=== PATIENT | male | born 2000 | race Caucasian/White ===

== ENCOUNTER 2022-09-08 23:12 | Emergency (ER) | payer BC ==
[~2022-09-08] VITALS: Ht 185.4 cm; Wt 79.5 kg
[2022-09-09 00:19] LABS: BASO # 0.1 K/mm3 (0.0-0.2); BASO % 0.5 % (0.0-2.0); EOS % 0.3 % (0.0-4.0); GRAN # 7.4 K/mm3 (1.4-6.5); GRAN % 63.7 % (42.2-75.2); HEMATOCRIT 46.2 % (42.0-52.0); HEMOGLOBIN 16.2 g/dl (13.5-18.0); MEAN CELL VOLUME 86 fl (80.0-100.0); MEAN CORPUSCULAR HEMOGLOBIN 30 pg (27-31); MEAN CORPUSCULAR HGB CONC 35 g/dl (33.0-37.0); MEAN PLATELET VOLUME 9.5 fl (7.4-10.4); MONO # 1.1 K/mm3 (0.1-0.6); MONO % 9.2 % (1.7-9.3); PLATELET COUNT 393 K/mm3 (130-400); RED BLOOD COUNT 5.37 M/mm3 (4.20-5.60); REDCELL DISTRIBUTION WIDTH-CV 12.3 % (11.5-14.5)
[2022-09-09 00:41] LABS: ACETAMINOPHEN < 1.0 ug/mL (10-30); ALANINE AMINOTRANSFERASE 21 U/L (0-55); ALBUMIN 4.7 gm/dL (3.5-5.0); ALCOHOL(ethanol),MEDICAL < 10 mg/dL (0-10); ALKALINE PHOSPHATASE 85 U/L (40-150); ANION GAP 14 mmol/L (7-16); AST,SGOT 18 U/L (5-34); BILIRUBIN,TOTAL 1.3 mg/dL (0.2-1.2); BLOOD UREA NITROGEN 10 mg/dL (9-21); CARBON DIOXIDE 23 mmol/L (22-29); CHLORIDE 106 mmol/L (98-107); CREATININE, serum 0.98 mg/dL (0.72-1.25); GLUCOSE 115 mg/dL (70-99); POTASSIUM 4.1 mmol/L (3.5-4.5); SALICYLATE < 5.0 mg/dL (15.0-30.0); SODIUM 143 mmol/L (136-145); TOTAL PROTEIN 8.1 gm/dL (6.2-8.1)
[2022-09-09 08:33] LABS: COLLECTION METHOD CLEAN CATCH
[2022-09-09 08:44] LABS: MUCOUS Present (NOT PRESENT); SQUAMOUS EPITHELIAL None Seen /hpf (0-10); URINE BACTERIA Rare /hpf (NONE SEEN); URINE COLOR Amber (YELLOW); URINE RBC 0-2 /hpf (0-2)
[2022-09-09 08:45] LABS: PH 6.5 (5.0-8.5); URINE APPEARANCE Clear (CLEAR/HAZY); URINE BLOOD Negative (NEGATIVE); URINE GLUCOSE Negative (NEGATIVE); URINE KETONE TRACE (NEGATIVE); URINE NITRATE Negative (NEGATIVE); URINE PROTEIN(semi-quant) 2+ (NEGATIVE)
[2022-09-09 08:54] LABS: TRICYCLIC ANTIDEPRESS URINE NEGATIVE
[2022-09-09] MEDS ORDERED: ZYPREXA10 MG PO (13:17)
[2022-09-09 13:28] VITALS: BP 140/71; PULSE 100; TEMP 98.4
== END 2022-09-09 13:40 ==
LOC: COL.ER 23:12
PROVIDERS: Emergency Medicine
DX: R44.0 Auditory hallucinations (principal); R46.1 Bizarre personal appearance; Z86.59 Personal history of other mental and behavioral disorders; Z20.822 Contact with and (suspected) exposure to COVID-19
CPT/HCPCS: J3486

== ENCOUNTER 2024-01-14 13:24 | Emergency (ER) | payer BC ==
[~2024-01-14] VITALS: Ht 198.1 cm; Wt 150.0 kg
[~2024-01-14 13:24] MED LIST: ZYPREXA10 MG PO
[2024-01-14 13:31] VITALS: TEMP 98.5
[2024-01-14 13:48] LABS: COLLECTION METHOD CLEAN CATCH
[2024-01-14 13:58] LABS: PH 5.5 (5.0-8.5); URINE APPEARANCE CLEAR (CLEAR/HAZY); URINE BLOOD NEGATIVE (NEGATIVE); URINE COLOR YELLOW (YELLOW); URINE GLUCOSE NEGATIVE (NEGATIVE); URINE KETONE NEGATIVE (NEGATIVE); URINE NITRATE NEGATIVE (NEGATIVE); URINE PROTEIN(semi-quant) 2+ (NEGATIVE); URINE UROBILINOGEN 0.2 E.U/dL (0.2-1.0)
[2024-01-14] MEDS ORDERED: OLANZapine 5 MG TAB PO ONE (14:00)
[2024-01-14] MEDS ORDERED: LR 1,000 ML IV ONE ×2 (14:00→16:00)
[2024-01-14 14:05] LABS: TRICYCLIC ANTIDEPRESS URINE NEGATIVE (NEGATIVE)
[2024-01-14 14:12] LABS: HEMATOCRIT 44.5 % (42.0-52.0); MEAN CELL VOLUME 84 fl (80.0-100.0); MEAN CORPUSCULAR HEMOGLOBIN 28 pg (27-31); MEAN CORPUSCULAR HGB CONC 34 g/dl (33.0-37.0); MEAN PLATELET VOLUME 9.8 fl (7.4-10.4); PLATELET COUNT 426 K/mm3 (130-400); RED BLOOD COUNT 5.33 M/mm3 (4.20-5.60); REDCELL DISTRIBUTION WIDTH-CV 12.6 % (11.5-14.5)
[2024-01-14 14:26] LABS: URINE RBC 0-2 /hpf (0-2)
[2024-01-14 14:33] LABS: ALANINE AMINOTRANSFERASE 116 U/L (0-55); ALBUMIN 3.9 g/dL (3.5-5.0); ALKALINE PHOSPHATASE 135 U/L (40-150); ANION GAP 14 mmol/L (7-16); AST,SGOT 52 U/L (5-34); BILIRUBIN,TOTAL 0.5 mg/dL (0.2-1.2); BLOOD UREA NITROGEN 11 mg/dL (9-21); CALCIUM 9.6 mg/dL (8.4-10.2); CHLORIDE 104 mEq/L (98-107); CREATININE, serum 0.77 mg/dL (0.72-1.25); GLUCOSE 159 mg/dL (70-99); POTASSIUM 3.5 mEq/L (3.5-4.5); SODIUM 137 mEq/L (136-145); TOTAL PROTEIN 8.1 g/dl (6.2-8.1)
[2024-01-14 14:34] LABS: SALICYLATE < 5.0 mg/dL (15.0-30.0)
[2024-01-14 14:52] LABS: BAND 1 % (0-10); BASOPHIL 1 % (0-2); EOSINOPHIL 2 % (0-4); LYMPHOCYTE 31 % (20.0-51.0); NEUTROPHILS 58 % (42.0-75.2)
[2024-01-14 14:53] LABS: PLATELET ESTIMATE INCREASED (NORMAL)
[2024-01-14 17:52] VITALS: BP 143/84; PULSE 117
== END 2024-01-14 17:52 ==
LOC: COL.ER 13:24
PROVIDERS: Emergency Medicine
DX: F29 Unspecified psychosis not due to a substance or known physiological condition (principal); E86.0 Dehydration
CPT/HCPCS: J7120